=== PATIENT | female | born 1970 | race Caucasian/White ===

== ENCOUNTER → 2018-03-20 | Outpatient (CLI) | payer OTHER ==
--- NOTE | 2018-03-20 16:46 | MR ---
EXAMINATION TYPE: MR knee LT wo con DATE OF EXAM: 03/20/2018 COMPARISON: NONE HISTORY: Pt Fell 10/2017, Swelling and Limited ROM TECHNIQUE: Multiplanar, multisequence images of the knee is performed without IV contrast. FINDINGS: MEDIAL MENISCUS: Anterior and posterior horns are intact without tear. LATERAL MENISCUS: Anterior and posterior horns are intact without tear. CRUCIATE LIGAMENTS: The anterior and posterior cruciate ligaments are intact and unremarkable. COLLATERAL LIGAMENTS: The medial collateral ligament and lateral collateral ligament complex are inta ct and unremarkable. EXTENSOR MECHANISM: Visualized quadriceps and patellar tendons are intact. EFFUSION: There is moderate size suprapatellar joint effusion. Some synovial thickening is present. POPLITEAL CYST: No popliteal/beard cyst. TRICOMPARTMENT SPACES: There is mild to borderline moderate tricompartment degenerative change. There is mild to minimal central spurring. CARTILAGE: There is thinning of articular cartilage medial tibiofemoral compartment. There is no sign ificant chondral malacia patella. BONE MARROW SIGNAL: No focal abnormal marrow signal is appreciated. OTHER: No additional significant abnormality is appreciated. IMPRESSION: 1. No meniscal or ligamentous tear is seen. 2. Mild to moderate tricompartment degenerative changes most likely product of osteoarthritis most pr ominent medial tibiofemoral compartment. 3. Moderate suprapatellar joint effusion with suggestion of synovitis.
== END | disposition home or self-care (01) ==
LOC: RADMRIMAIN 15:28
PROVIDERS: ATTEND Nurse Practitioner Family
DX: M25.462 Effusion, left knee (principal)

== ENCOUNTER → 2018-06-13 | Outpatient (CLI) | payer OTHER ==
--- NOTE | 2018-06-21 10:45 | MM ---
Reason for exam: screening (asymptomatic). History: Family history of breast cancer in maternal aunt. MG Screening Mammo w CAD Bilateral CC and MLO view(s) were taken. There are scattered fibroglandular densities. No suspicious abnormality. Manage on a clinical basis axillary chronic redness. If further concern of the axillary redness an ultrasound could be performed. ASSESSMENT: Negative, BI-RAD 1 RECOMMENDATION: Routine screening mammogram of both breasts in 1 year.
== END | disposition home or self-care (01) ==
LOC: RADMAMWWP 14:03
PROVIDERS: ATTEND Family Medicine
DX: Z12.31 Encounter for screening mammogram for malignant neoplasm of breast (principal)
CPT/HCPCS: 77067

== ENCOUNTER → 2019-09-03 | Outpatient (CLI) | payer OTHER ==
--- NOTE | 2019-09-03 12:28 | US ---
EXAMINATION TYPE: US transvaginal DATE OF EXAM: 09/03/2019 COMPARISON: NONE CLINICAL HISTORY: N95.0 Dysmenorrhea. Pt states LMP 10 yrs ago, pt taking hormones x 3-4 months, star em[facility] having vaginal bleeding x 4 days TECHNIQUE: Transvaginal (TV). Transvaginal sonographic images of the pelvis were acquired. Date of LMP: 10 yrs ago EXAM MEASUREMENTS: Uterus: 8.5 x 4.4 x 4.8 cm Endometrial Stripe: 2.3 cm 1. Uterus: Anteverted Heterogeneous 2. Endometrium: Thickened, heterogeneous 3. Right Ovary: Obscured by overlying bowel gas 4. Left Ovary: Obscured by overlying bowel gas 5. Bilateral Adnexa: wnl 6. Posterior cul-de-sac: wnl IMPRESSION: 1. The endometrium is heterogeneous and markedly thickened. Differential diagnosis would include endo metrial hyperplasia and endometrial carcinoma correlate clinically. 2. Nonspecific heterogeneity to the uterus. This can be seen with adenomyosis as well as diffuse fibr oid change is a nonspecific finding. No focal fibroids are seen. Further evaluation with MRI could be performed as clinically warranted.
--- NOTE | 2019-09-04 10:17 | MM ---
Reason for exam: screening (asymptomatic). Last mammogram was performed 1 year and 3 months ago. History: Patient is postmenopausal. Family history of breast cancer in mother at age 79 and breast cancer in maternal aunt. Took progesterone for 3 months. Physical Findings: A clinical breast exam by your physician is recommended on an annual basis and results should be correlated with mammographic findings. MG Screening Mammo w CAD Bilateral CC and MLO view(s) were taken. Prior study comparison: June 13, 2018, bilateral MG screening mammo w CAD. There are scattered fibroglandular densities. No suspicious abnormality. No significant changes when compared with prior studies. ASSESSMENT: Negative, BI-RAD 1 RECOMMENDATION: Routine screening mammogram of both breasts in 1 year.
== END | disposition home or self-care (01) ==
LOC: RADMAMWWP 10:47
PROVIDERS: ATTEND Family Medicine
DX: Z12.31 Encounter for screening mammogram for malignant neoplasm of breast (principal); R93.89 Abnormal findings on diagnostic imaging of other specified body structures; N95.0 Postmenopausal bleeding
CPT/HCPCS: 76830; 77067

== ENCOUNTER → 2020-01-01 | Outpatient (CLI) | payer OTHER ==
[2020-01-01 15:00] LABS: Basophils % (A) 0 %; Eosinophils # (A) 0.3 k/uL (0-0.7); Eosinophils % (A) 4 %; HCT 37.3 % (34.0-46.0); Lymphocytes # (A) 1.6 k/uL (1.0-4.8); Lymphocytes % (A) 21 %; MCH 29.7 pg (25.0-35.0); MCHC 32.1 g/dL (31.0-37.0); MCV 92.5 fL (80.0-100.0); Mean Platelet Volume 7.1; Monocytes # (A) 0.3 k/uL (0-1.0); Monocytes % (A) 4 %; Neutrophils # (A) 5.2 k/uL (1.3-7.7); Neutrophils % (A) 69 %; Platelet Count 323 k/uL (150-450); RBC 4.03 m/uL (3.80-5.40); WBC 7.6 k/uL (3.8-10.6)
== END | disposition home or self-care (01) ==
LOC: LABPAT 14:00
PROVIDERS: ATTEND Obstetrics & Gynecology Obstetrics
DX: Z01.818 Encounter for other preprocedural examination (principal); Z01.812 Encounter for preprocedural laboratory examination; N95.0 Postmenopausal bleeding; I10 Essential (primary) hypertension
CPT/HCPCS: 36415; 85025; 93005

== ENCOUNTER 2020-01-20 08:37 | Day surgery (SDC) | payer OTHER ==
[2020-01-16 10:55] VITALS: BMI 33.3
[~2020-01-20 08:37] MED LIST: DEXAMETHASONE SOD PHOSPHATE 10 MG/ML 1 ML VIAL IV ONE; HYDROmorphone 0.5 MG/0.5 ML SYRINGE IVP PRN; LACTATED RINGERS 1,000 ML IV SCH; LIDOCAINE 1% (10MG/ML) FOR IV START INTRADERMA PRN; MIDAZOLAM 2 MG/2 ML VIAL IV PRN; Pre Op ABX Message 1 EACH MISC MISCELLANE ONE
[2020-01-20 09:09] VITALS: RESP 16
[2020-01-20] MEDS ORDERED: LIDOCAINE 1% INJ 10MG/ML (20 ML MDV) ONE (09:50)
[2020-01-20] MEDS ORDERED: fentaNYL (PF) 50 MCG/ML 2 ML AMP ONE (09:50)
[2020-01-20] MEDS ORDERED: PROPOFOL 10 MG/ML 20 ML VIAL IV ONE (09:50)
[2020-01-20] MEDS ORDERED: KETOROLAC 30 MG/ML 1 ML VIAL ONE (09:50)
[2020-01-20 10:34] VITALS: TEMP 98.1
--- NOTE | 2020-01-20 10:48 | P.OP ---
Date of Procedure: 01/20/20 Preoperative Diagnosis: Thickened endometrial stripe, post menopausal bleeding Postoperative Diagnosis: Same Procedure(s) Performed: Hysteroscopy, dilation and curettage Anesthesia: MAC Surgeon: Maggy Rodney Estimated Blood Loss (ml): 5 IV fluids (ml): 300 Urine output (ml): 5 Pathology: other (Endometrial curettings) Condition: stable Disposition: PACU Indications for Procedure: Thickened endometrial stripe noted with post menopausal bleeding Operative Findings: And Kourtney cavity with noted scarring no obvious gross pathology noted Description of Procedure: Patient is seen in the preoperative area and informed consent is obtained. Patient was taken back to the operating suite where general anesthesia was obtained without difficulty by the anesthesia department. She was prepped and draped in normal sterile fashion in the dorsal lithotomy position. A weighted speculum posterior vaginal vault a red rubber catheter was used to drain the bladder of clear yellow urine. The anterior lip of the cervix is visualized grasped with a single-tooth tenaculum and endocervical canal was then dilated. Hysteroscope was placed through the cervix and toward the endometrial cavity and intact and Kourtney cavity was noted both tubal orifices were noted and normal in nature there was some scarring noted but no polyps or abnormal tissue was appreciated. Sutures were taken and the hysteroscope was removed. A sharp curettage was then performed and the specimen was sent to pathology for analysis. Afterwards the single-tooth tenaculum was taken off of the anterior lip of the cervix hemostasis was appreciated. All instruments were then removed from patient's vaginal vault. All counts are correct 2 patient tolerated procedure well was taken the recovery room awake in stable condition.
[2020-01-20 12:02] VITALS: BP 122/71; PULSE 83
[2020-01-21] MEDS ORDERED: MELOXICAM 15 MG PO SCH (09:00)
[2020-01-21] MEDS ORDERED: VENLAFAXINE HCL 150 MG PO SCH (09:00)
[2020-01-21] MEDS ORDERED: BUPROPION HCL 450 MG PO SCH (09:00)
[2020-01-21] MEDS ORDERED: NON FORMULARY DRUG (Triamterene/Hydrochlorothiazid [Triamterene-Hctz 37.5-25 Mg Tb] 1 EACH PO SCH (09:00)
== END 2020-01-20 12:00 | disposition home or self-care (01) ==
LOC: OR 08:37
PROVIDERS: ATTEND Obstetrics & Gynecology Obstetrics
DX: N85.8 Other specified noninflammatory disorders of uterus (principal); N95.0 Postmenopausal bleeding; N95.2 Postmenopausal atrophic vaginitis; I10 Essential (primary) hypertension; F41.9 Anxiety disorder, unspecified; L90.0 Lichen sclerosus et atrophicus; F32.9 Major depressive disorder, single episode, unspecified; E66.9 Obesity, unspecified; F17.200 Nicotine dependence, unspecified, uncomplicated; Z79.899 Other long term (current) drug therapy; Z98.890 Other specified postprocedural states; Z79.3 Long term (current) use of hormonal contraceptives; Z79.1 Long term (current) use of non-steroidal anti-inflammatories (NSAID); Z82.49 Family history of ischemic heart disease and other diseases of the circulatory system; Z83.3 Family history of diabetes mellitus; Z80.3 Family history of malignant neoplasm of breast; Z80.8 Family history of malignant neoplasm of other organs or systems; Z68.35 Body mass index [BMI] 35.0-35.9, adult
CPT/HCPCS: 81025; 88305; 58558; J2250; J1100; J2001; J3010; J1885; J2704

== ENCOUNTER → 2024-07-19 | Outpatient (CLI) | payer OTHER ==
--- NOTE | 2024-07-22 08:33 | MM ---
Reason for Exam: Screening (asymptomatic). Last mammogram was performed 4 year(s) and 11 month(s) ago. Patient History: Menarche at age 12. First Full-Term at age 13. Postmenopausal. Progesterone for 3 months. Maternal aunt had breast cancer. Mother had breast cancer, age 79. Risk Values: Monica 5 year model risk: 2.2%. NCI Lifetime model risk: 14.8%. Prior Study Comparison: 06/13/2018 Bilateral Screening Mammogram, [facility]. 09/03/2019 Bilateral Screening Mammogram, [facility]. Tissue Density: The breasts are almost entirely fatty. Findings: Analyzed By CAD. Right breast: There is no suspicious group of microcalcifications or new suspicious mass. Left breast: There is no suspicious group of microcalcifications or new suspicious mass. Overall Assessment: Negative, BI-RAD 1 Management: Screening Mammogram of both breasts in [address] [facility] will attempt to contact patient to return for supplemental views and ultrasound if indicated. Patient should continue monthly self-breast exams. A clinical breast exam by your physician is recommended on an annual basis. This exam should not preclude additional follow-up of suspicious palpable abnormalities. Note on Monica scores and lifetime risk: 1. A Monica score greater than 3% is considered moderate risk. If this is the case, consider specialist referral to assess eligibility for a risk reducing agent. 2. If overall lifetime risk for the development of breast cancer is 20% or higher, the patient may qualify for future screening with alternating mammogram and breast MRI. [facility], , 07/22/2024 8:30 AM. Electronically signed and approved by: Stephan Ramsey DO
== END | disposition home or self-care (01) ==
LOC: RADMAMWWP 09:20
PROVIDERS: ATTEND Family Medicine
DX: Z12.31 Encounter for screening mammogram for malignant neoplasm of breast
CPT/HCPCS: 77067